=== PATIENT | male | born 1985 | race Caucasian/White ===

== ENCOUNTER 2017-08-15 15:44 | Emergency (ER) | payer OTHER ==
[2017-08-15] MEDS ORDERED: TETRACAINE HCL 0.5% OPH SOLN 2 ML OS ONE (16:23)
--- NOTE | 2017-08-15 16:28 | ER Document Report ---
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 Patient states that it arced and he had left eye pain. Patient denies any glasses or contact lens use. Patient complains of light sensitivity. Patient denies any change in his vision. Patient denies any eye drainage or discharge. Associated Symptoms: Other - Left eye pain. denies: Fever Exacerbated by: Denies Relieved by: Denies Similar symptoms previously: No Recently seen / treated by doctor: No - ROS ROS below otherwise negative: Yes Systems Reviewed and Negative: Yes All other systems reviewed and negative - CONSTITUTIONAL Constitutional: DENIES: Fever - EENT EENT: REPORTS: Eye problems - DERM Skin Problems: None Past Medical History - General Information source: Patient - Social History Smoking Status: Never Smoker Frequency of alcohol use: Occasional Lives with: Family Family History: Reviewed & Not Pertinent Neurological Medical History: Reports: Hx Migraine Psychiatric Medical History: Reports: Hx Post Traumatic Stress Disorder Past Surgical History: Reports: Hx Orthopedic Surgery - knee(R) - Immunizations Hx Diphtheria, Pertussis, Tetanus Vaccination: Yes Vertical Provider Document - CONSTITUTIONAL Agree With Documented VS: Yes Exam Limitations: No Limitations General Appearance: WD/WN, No Apparent Distress - INFECTION CONTROL TRAVEL OUTSIDE OF THE [place] IN LAST 30 DAYS: No - HEENT HEENT: Atraumatic, Normocephalic Notes: Left eye sclera injected. Patient with fluorescein uptake to corneal foreign body. Patient with rust ring surrounding foreign body. - NECK Neck: Normal Inspection - RESPIRATORY Respiratory: No Respiratory Distress O2 Sat by Pulse Oximetry: 99 - MUSCULOSKELETAL/EXTREMETIES Musculoskeletal/Extremeties: MAEW - NEURO Level of Consciousness: Awake, Alert, Appropriate Motor/Sensory: No Motor Deficit - DERM Integumentary: Warm, Dry, No Rash Course - Re-evaluation Re-evalutation: 08/15/17 17:[address] Bynum regarding patient presentation, recommends consultation with ophthalmology. Spoke with Dr. Diaz regarding patient presentation. Advises placing patient on antibiotic drops and having him follow -up in the office tomorrow morning. - Vital Signs Vital signs: Temp Pulse Resp BP Pulse Ox 99.1 F 91 18 131/97 H 99 08/15/17 15:51 08/15/17 15:51 08/15/17 15:51 08/15/17 15:51 08/15/17 15:51 Procedures - Eye Procedure Left Fluorescein applied: Left Antibiotic Oinment/Drps Admin: Left eye Eyes picture: 1 - Corneal foreign body with rust ring Discharge - Discharge Clinical Impression: Corneal rust ring of left eye Condition: Stable Disposition: HOME, SELF-CARE Instructions: Corneal Foreign Body ([facility]), Corneal Foreign Body with Rust ([facility]) Additional Instructions: Return immediately for any new or worsening symptoms Followup with Dr. Diaz tomorrow for further management. Call his office at 9 AM for an appointment time. Let the office staff know that we spoke with him today and he wants to see you in the office tomorrow. Instill besivance eyedrops 1 drop every 8 hours to left eye. Forms: Return to Work Referrals: [facility] [Provider Group] - Follow up tomorrow
[2017-08-15] MEDS ORDERED: BESIFLOXACIN HCL 0.6% OPH SUSP 5 ML BOTTLE OS ONE (17:04)
[2017-08-15 17:15] VITALS: BP 150/90
== END 2017-08-15 17:15 | disposition home or self-care (01) ==
LOC: ER 15:44
DX: T15.02XA Foreign body in cornea, left eye, initial encounter (principal); X58.XXXA Exposure to other specified factors, initial encounter; H57.12 Ocular pain, left eye
CPT/HCPCS: 99283